=== PATIENT | male | born 2005 | race Hispanic/Latino ===

== ENCOUNTER 2024-03-22 16:05 | Emergency (ER) | payer OTHER, SELFPAY ==
[~2024-03-22 16:05] MED LIST: Iopamidol 370 76% 100 ML VIAL ONE
[2024-03-22] MEDS ORDERED: Ondansetron PF 4 MG/2 ML Vial ONE (16:56)
[2024-03-22] MEDS ORDERED: Pantoprazole 40 MG VIAL ONE (16:57)
[2024-03-22 16:59] LABS: #Basophils 0.03 10x3/uL (0.0-0.2); #Eosinphils 0.17 10x3/uL (0.0-0.5); #Monocytes 0.51 10x3/uL (0.0-1.1); #Neutrophils 3.74 10x3/uL (1.5-8.4); %Basophils 0.5 % (0.0-2.0); %Eosinophils 2.7 % (0.0-6.0); %Lymphocytes 29.8 % (18.0-47.0); %Neutrophils 58.4 % (40.0-75.0); Hematocrit 41.7 % (38.8-50.0); Hemoglobin 14.7 g/dL (13.5-17.5); Mean Corpuscular HGB CONC 35.3 g/dL (32.0-36.0); Mean Corpuscular Hemoglobin 29.1 pg (27.0-33.0); Mean Corpuscular Volume 82.6 fL (81.2-95.1); Mean Platelet Volume 9.4 fL (7.4-10.4); Platelet Count 325 10x3/uL (150-450); RBC Distribution Width 12.6 % (11.5-14.5); Red Blood Cell (RBC) Count 5.05 10x6/uL (4.32-5.72); White Blood Cell (WBC) Count 6.4 10x3/uL (3.5-10.5)
[2024-03-22 17:11] LABS: ALT (SGPT) 24 U/L (8-55); AST (SGOT) 19 U/L (5-34); Albumin 4.5 g/dL (3.5-5.0); Alkaline Phosphatase 112 U/L (50-130); Anion Gap 12 mmol/L (10-20); BUN (Urea Nitrogen) 13 mg/dL (8.9-20.6); Bilirubin, Total 0.3 mg/dL (0.2-1.2); Calc. Creatinine Clearance 0 mL/min (70-130); Calcium 9.5 mg/dL (7.8-10.44); Carbon Dioxide 26 mmol/L (22-29); Chloride 104 mmol/L (98-107); Estimated GFR 127; Globulin 3.2 g/dL (2.4-3.5); Glucose 105 mg/dL (70-105); Lipase 8 U/L (8-78); Potassium 4.1 mmol/L (3.5-5.1); Protein, Total 7.7 g/dL (6.0-8.3); Sodium 138 mmol/L (136-145)
== END 2024-03-22 18:00 | disposition home or self-care (01) ==
LOC: CSHERS 16:05
DX: R10.13 Epigastric pain (principal)
CPT/HCPCS: 36415; 74177; 80053; 83690; 85025; 96374; 96375; C9113; J2405; Q9967

== ENCOUNTER 2024-05-11 20:41 | Emergency (ER) | payer SELFPAY ==
[2024-05-11] MEDS ORDERED: Ondansetron ODT 4 MG TAB ONE (21:43)
[2024-05-11] MEDS ORDERED: Dicyclomine 20 MG TAB ONE (21:43)
== END 2024-05-11 22:01 | disposition home or self-care (01) ==
LOC: CSHERS 20:41
DX: K29.70 Gastritis, unspecified, without bleeding (principal)
CPT/HCPCS: 99283; Q0162